=== PATIENT | female | born 2000 | race Caucasian/White ===

== ENCOUNTER 2023-10-20 00:39 | Emergency (ER) | payer MEDICAID, SELFPAY ==
[2023-10-20 00:43] VITALS: BP 109/77; PULSE 113; TEMP 36.6; O2SAT 100; BMI 31.9
--- NOTE | 2023-10-20 01:03 | ED_ITS ---
HPI - Dental/Oral General Chief complaint: Dental/Oral Stated complaint: DENTAL PAIN Time Seen by Provider: 10/20/23 00:56 Source: patient Mode of arrival: walk-in Limitations: no limitations History of Present Illness HPI Narrative: 23-year-old female presents to the emergency department for dental pain. She has a dentist appointment the day after tomorrow and is already on an antibiotic. She was having continued pain in the upper left dentition anteriorly. No difficulty breathing or swallowing and she has not had a fever. The pain is moderate to severe and continuous. She has been taking naproxen at home. Related Data Home Medications ?Medication ?Instructions ?Recorded ?Confirmed amoxicillin 500 mg capsule 500 mg PO Q12H 10/20/23 10/20/23 cholecalciferol (vitamin D3) 50 2,000 unit PO DAILY 10/20/23 10/20/23 mcg (2,000 unit) capsule citalopram 40 mg tablet 40 mg PO DAILY 10/20/23 10/20/23 cyanocobalamin (vitamin B-12) 1,000 mcg PO DAILY 10/20/23 10/20/23 1,000 mcg tablet divalproex 250 mg tablet,delayed 250 mg PO DAILY 10/20/23 10/20/23 release ferrous sulfate 325 mg (65 mg 325 mg PO DAILY 10/20/23 10/20/23 iron) tablet (FeroSul) ibuprofen 800 mg tablet 800 mg PO Q8H PRN fever or pain 10/20/23 10/20/23 ketorolac 10 mg tablet 10 mg PO Q6H PRN pain 10/20/23 10/20/23 naproxen 500 mg tablet 500 mg PO Q12H PRN pain 10/20/23 10/20/23 norethindrone (contraceptive) 0.35 mg 10/20/23 mg tablet (Jencycla) rimegepant 75 mg disintegrating 75 mg PO PRN migraine headache 10/20/23 tablet (Nurtec ODT) Previous Rx's ?Medication ?Instructions ?Recorded acetaminophen 300 mg-codeine 30 mg 1 tab PO Q6H PRN pain 5 days #20 10/20/23 tablet tabs Allergies Allergy/AdvReac Type Severity Reaction Status Date / Time Penicillins Allergy Hives Verified 10/20/23 00:50 clindamycin AdvReac Chest Pain Verified 10/20/23 00:50 Review of Systems ROS Narrative A ten point review of systems is negative except as noted above. PFSH PFS Medical History (Updated 10/20/23 @ 01:01 by Matias Soto MD) Depression ?F32.A - Depression, unspecified (ICD-10) Bipolar 1 disorder ?F31.9 - Bipolar disorder, unspecified (ICD-10) Migraine ?G43.909 - Migraine, unspecified, not intractable, without status migrainosus (ICD-10) Surgical History (Updated 10/20/23 @ 00:57 by Sera Montgomery) H/O right wrist surgery ?Z98.890 - Other specified postprocedural states (ICD-10) Exam Narrative Exam Narrative: Nurses note and vital signs reviewed and patient is not hypoxic. General: The patient appears well and in no apparent distress. Patient is resting comfortably on cart. Skin: Warm, dry, no pallor noted. There is no rash noted. Head: Normocephalic, atraumatic Eye: Normal conjunctiva, no drainage Ears, Nose, Mouth, and Throat: oral mucosa is moist. Nares patent. No swelling to the floor of her mouth. She has obvious dental caries in the anterior maxillary dentition particularly anteriorly. Most of the teeth in this area are eroded down to the gumline. No bleeding or pus present. No gingival swelling. Cardiovascular: Regular Rate and Rhythm Respiratory: Patient is in no distress, no accessory muscle use, lungs are clear to auscultation, no wheezing, rales or rhonchi Back: non-tender GI: Soft and nontender Musculoskeletal: The patient has no evidence of calf tenderness, no pitting edema, symmetrical pulses noted bilaterally Neurological: Awake and alert Psychiatric: Cooperative Constitutional Vital Signs, click to edit/add: Last Vital Signs Temp 98 F 10/20/23 00:43 Pulse 113 H 10/20/23 00:43 Resp 16 10/20/23 00:43 BP 109/77 10/20/23 00:43 Pulse Ox 100 10/20/23 00:43 O2 Del Method Room Air 10/20/23 00:43 Course Vital Signs Vital signs: Vital Signs Temperature 98 F 10/20/23 00:43 Pulse Rate 113 H 10/20/23 00:43 Respiratory Rate 16 10/20/23 00:43 Blood Pressure 109/77 10/20/23 00:43 Pulse Oximetry 100 10/20/23 00:43 Oxygen Delivery Method Room Air 10/20/23 00:43 Temperature 98 F 10/20/23 00:43 Pulse Rate 113 H 10/20/23 00:43 Respiratory Rate 16 10/20/23 00:43 Blood Pressure 109/77 10/20/23 00:43 Pulse Oximetry 100 10/20/23 00:43 Oxygen Delivery Method Room Air 10/20/23 00:43 MDM - Dental/Oral MDM Narrative Medical decision making narrative: She will continue her antibiotic and will see her dentist in 2 days. She was prescribed Tylenol 3 for pain. Treatment diagnosis and follow-up were discussed with the patient. Differential Diagnosis Differential diagnosis: Likely gingival abscess, dental caries, toothache and dental abscess Discharge Plan Discharge Stand Alone Forms: Work/School Release, Portal Instructions Chief Complaint: Dental/Oral Clinical Impression: Toothache, Dental caries Patient Disposition: Home, Self-Care Time of Disposition Decision: 01:01 Condition: Good Mode of Transportation: Private Vehicle Prescriptions / Home Meds: New acetaminophen-codeine 300-30 mg tablet 1 tab PO Q6H PRN (Reason: pain) 5 Days Qty: 20 0RF No Action amoxicillin 500 mg capsule 500 mg PO Q12H cholecalciferol (vitamin D3) 50 mcg (2,000 unit) capsule 2,000 unit PO DAILY citalopram 40 mg tablet 40 mg PO DAILY cyanocobalamin (vitamin B-12) 1,000 mcg tablet 1,000 mcg PO DAILY divalproex 250 mg tablet,delayed release (DR/EC) 250 mg PO DAILY ferrous sulfate [FeroSul] 325 mg (65 mg iron) tablet 325 mg PO DAILY ibuprofen 800 mg tablet 800 mg PO Q8H PRN (Reason: fever or pain) ketorolac 10 mg tablet 10 mg PO Q6H PRN (Reason: pain) naproxen 500 mg tablet 500 mg PO Q12H PRN (Reason: pain) norethindrone (contraceptive) [Jencycla] 0.35 mg tablet Nurtec ODT 75 mg tablet,disintegrating 75 mg PO PRN (Reason: migraine headache) Print Language: Greek Instructions: Toothache (ED), Tooth Extraction (DC) Additional Instructions: Follow-up with your dentist at your appointment on Wednesday. Referrals: Estelle Phelan, [facility] [Primary Care Provider] - 1 week
[2023-10-20] MEDS: KETOROLAC TROMETHAMINE 60 MG/2 ML VIAL IM (01:08)
== END 2023-10-20 01:18 | disposition home or self-care (01) ==
PROVIDERS: Emergency Provider Emergency Medicine; PCP Nurse Practitioner Family
DX: K02.9 Dental caries, unspecified (principal); K08.89 Other specified disorders of teeth and supporting structures
CPT/HCPCS: 96372; 99284; J1885